=== PATIENT | male | born 1985 | race African-American/Black ===

== ENCOUNTER 2023-05-31 07:11 | Emergency (ER) | payer MEDICAID ==
[~2023-05-31] VITALS: Ht 185.4 cm; Wt 107.3 kg
[2023-05-31 08:46] VITALS: BP 152/90; PULSE 83; RESP 18; TEMP 98.8; O2SAT 98
[2023-05-31] MEDS ORDERED: NAP500T PO (09:03)
== END 2023-05-31 09:09 | disposition home or self-care (01) ==
LOC: ER 07:11
DX: M65.4 Radial styloid tenosynovitis [de Quervain] (principal)
CPT/HCPCS: 29125